=== PATIENT | female | born 1975 | race Caucasian/White ===

== ENCOUNTER 2019-05-06 15:01 | Emergency (ER) | payer OTHER ==
[~2019-05-06] VITALS: Ht 165.1 cm; Wt 66.7 kg
[~2019-05-06 15:01] MED LIST: HYDR-3240 PO; None per pt; PROM25TA10 PO
--- NOTE | 2019-05-06 16:09 | NUR ---
SWIMMING COACH OR INSTRUCTOR: PT AMBULATORY TO ED ROOM 21 FROM [place] IN [facility] AT THIS TIME
[2019-05-06] MEDS ORDERED: KETOROLAC 60 MG/2 ML IM ONE (16:30)
[2019-05-06] MEDS ORDERED: KETOROLAC 60 MG/2 ML ONE (16:34)
--- NOTE | 2019-05-06 16:43 | NUR ---
MEDS GIVEN PER ERP ORDER. BP CUFF, PULSE OX IN PLACE. CALL LIGHT WITHIN REACH. PT OFFERED BLANKET.
[2019-05-06 16:54] VITALS: BP 108/55
== END 2019-05-06 16:56 | disposition home or self-care (01) ==
LOC: ED 16:47
DX: R07.2 Precordial pain (principal); R07.89 Other chest pain
CPT/HCPCS: 71045; 93005; 96372; 99283; J1885